=== PATIENT | female | born 1990 | race African-American/Black ===

== ENCOUNTER 2017-01-27 14:48 | Emergency (ER) | payer SELFPAY ==
[~2017-01-27] VITALS: Ht 180.3 cm; Wt 99.3 kg
[2017-01-27] MEDS ORDERED: NKM (14:59)
[2017-01-27 15:44] VITALS: BP 100/68
[2017-01-27 16:06] LABS: APPEARANCE,URINE CLEAR; KETONES,URINE NEGATIVE (NEGATIVE); LEUKOCYTE ESTERASE ,URINE 3+ (NEGATIVE); NITRITE,URINE NEGATIVE (NEGATIVE); PH,URINE 6 (4.5-8.0); PROTEIN,URINE NEGATIVE (NEGATIVE); UROBILINOGEN,URINE NORMAL MG/DL (0.0-1.0)
[2017-01-27 16:20] LABS: BACTERIA,URINE MODERATE /HPF; RBC,URINE 0-2 /HPF (0 - 2); SQUAMOUS EPITHELIAL CELL,UR MODERATE /LPF (NONE/OCC)
--- NOTE | 2017-01-27 16:30 | Emergency Room Report ---
History of Present Illness General Chief Complaint: General Complaint Source: Patient Present Illness HPI 26-year-old female presents to emergency Department complaining of intermittent cramping lower abdominal pain in addition to irregular spotting intermittently x2 months.denies vaginal spotting or bleeding at this time. states her period is late. Patient also reports new onset chest pain which is exacerbated with movement and taking deep breaths. Rates her pain as 8/10 in severity localized to the anterior chest patient states that recently she has been having to lift a heavy car seat in and out of the car and carry it around daily. She denies trauma or fall otherwise. Patient denies hematuria she reports increased urinary frequency denies dysuria. Patient denies abdominal tenderness patient denies nausea, vomiting, fevers, chills. She denies history of cardiac disease. Denies SOB, Palpitations, LOC, AMS, dizziness, Changes in Vision, Sensation, paresthesias, or a sudden severe headache. Allergies: Coded Allergies: No Known Allergies (Unverified , 01/27/17) Patient History Past Medical History: see triage record Past Surgical History: none Pertinent Family History: none Last Menstrual Period: 12/30/2016 Now: No Immunizations: UTD Reviewed Nursing Documentation: PMH: Agreed, PSxH: Agreed Nursing Documentation-PMH Past Medical History: No Stated History Review of Systems All Other Systems: negative except mentioned in HPI Physical Exam Vital Signs Date Time Temp Pulse Resp B/P Pulse Ox O2 Delivery O2 Flow Rate FiO2 01/27/17 14:52 98.1 75 16 95/61 97 Room Air Sp02 EP Interpretation: reviewed, normal General Appearance: no apparent distress, alert, GCS 15, non-toxic Head: normocephalic, atraumatic Eyes: bilateral eye PERRL, bilateral eye normal inspection ENT: hearing grossly normal, normal pharynx, no angioedema, normal voice Neck: full range of motion, supple/symm/no masses Respiratory: lungs clear, normal breath sounds, no rhonchi, no respiratory distress, no retraction, no accessory muscle use, no wheezing, speaking full sentences, other - anterior chest pain is reproducible with palpation and movement. Cardiovascular #1: regular rate, rhythm, no edema, normal capillary refill Gastrointestinal: normal bowel sounds, non tender, soft, no guarding, no rebound Rectal: deferred Genitourinary: normal inspection, no CVA tenderness Musculoskeletal: back normal, gait/station normal, normal range of motion, non- tender, no calf tenderness Neurologic: alert, oriented x3, responsive, motor strength/tone normal, sensory intact, speech normal Psychiatric: judgement/insight normal, memory normal, mood/affect normal, no suicidal/homicidal ideation Skin: normal color, no rash, warm/dry, well hydrated Medical Decision Making PA Attestation Dr. Garcia is my supervising Physician whom patient management has been discussed with. Diagnostic Impression: Primary Impression: Urinary tract infection Qualified Codes: N30.00 - Acute cystitis without hematuria Additional Impression: Pectoralis muscle strain Qualified Codes: S29.011A - Strain of muscle and tendon of front wall of thorax, initial encounter ER Course 26-year-old female presents to emergency Department complaining of intermittent cramping lower abdominal pain in addition to missed period x2 months. Patient also reports new onset chest pain which is exacerbated with movement and taking deep breaths. Rates her pain as 8/10 in severity localized to the anterior chest patient states that recently she has been having to lift a heavy car seat in and out of the car and carry it around daily. She denies trauma or fall otherwise. Patient denies hematuria she reports increased urinary frequency denies dysuria. Patient denies abdominal tenderness patient denies nausea, vomiting, fevers, chills. She denies history of cardiac disease. Denies SOB, Palpitations, Ddx considered but are not limited to GA, Muscle strain, anxiety reaction, UTi , , Cystitis Vital signs: are WNL, pt. is afebrile H&PE are most consistent with UTI and pectoralis muscle strain as pain is reproducible with palpation and movement. -pt does not have cardiac RF's ORDERS: - UA labs are attached: consistent with UTI -EK BPM NSR no acute ST changes interpreted by Dr. Garcia. -Urine HCG: Negative ED INTERVENTIONS: None required at this time. DISCHARGE: At this time pt. is stable for d/c to home. Will provide printed patient care instructions, and any necessary prescriptions. Care plan and follow up instructions have been discussed with the patient prior to discharge. Labs Test 01/27/17 15:42 Urine Color Pale yellow Urine Appearance Clear Urine pH 6 (4.5-8.0) Urine Specific [place] 1.020 (1.005-1.035) Urine Protein Negative (NEGATIVE) Urine Glucose (UA) Negative (NEGATIVE) Urine Ketones Negative (NEGATIVE) Urine Occult Blood Negative (NEGATIVE) Urine Nitrite Negative (NEGATIVE) Urine Bilirubin Negative (NEGATIVE) Urine Urobilinogen Normal MG/DL (0.0-1.0) Urine Leukocyte Esterase 3+ (NEGATIVE) Urine RBC 0-2 /HPF (0 - 2) Urine WBC 5-10 /HPF (0 - 2) Urine Squamous Epithelial Cells Moderate /LPF (NONE/OCC) Urine Bacteria Moderate /HPF (NONE) Urine HCG, Qualitative Negative EKG Diagnostic Results EP Interpretation: interpreted by Dr. Garcia Rate: normal - 68 BPM Rhythm: NSR ST Segments: no acute changes ASA given to the pt in ED: No PA Scribe Text interpreted by Dr. Garcia Last Vital Signs Date Time Temp Pulse Resp B/P Pulse Ox O2 Delivery O2 Flow Rate FiO2 01/27/17 15:44 98.1 75 16 100/68 97 Room Air Disposition: HOME, SELF-CARE Condition: Stable Scripts Acetaminophen* (TYLENOL EXTRA STRENGTH*) 500 Mg Tablet 500 MG ORAL Q6H, #30 TAB 0 Refills Prov: Myrtle Benson 01/27/17 Nitrofurantoin Monohyd/M-Cryst* (MACROBID 100 MG*) 100 Mg Capsule 100 MG ORAL EVERY 12 HOURS for 5 Days, #10 CAP Prov: Myrtle Benson 01/27/17 Patient Instructions: Nonspecific Chest Pain, [id number], Urinary Tract Infection, [id number] Additional Instructions: Take medications as directed. Follow up with PCP in 3-5 days Return sooner to ED if new symptoms occur, or current symptoms become worse. - Please note that this Emergency Department Report was dictated using [employer] technology software, occasionally this can lead to erroneous entry secondary to interpretation by the dictation equipment. Myrtle Benson Jan 27, 2017 16:30
[2017-01-27] MEDS ORDERED: TYLENOL EXTRA500 MG ORAL (16:33)
[2017-01-27] MEDS ORDERED: NITROFURANTOIN100 M2 ORAL (16:33)
[2017-01-27 16:54] VITALS: BP 100/68
== END 2017-01-27 16:55 | disposition home or self-care (01) ==
LOC: EMR 15:26
DX: N30.00 Acute cystitis without hematuria (principal); S29.011A Strain of muscle and tendon of front wall of thorax, initial encounter
CPT/HCPCS: 81003; 81025; 87086; 99284